=== PATIENT | male | born 1985 | race Two or more races ===

== ENCOUNTER 2019-04-23 22:21 | Emergency (ER) | payer OTHER ==
[~2019-04-23] VITALS: Ht 162.6 cm; Wt 77.1 kg
[2019-04-23 22:26] VITALS: Ht 162.6 cm; Wt 77.1 kg
[2019-04-23 22:47] VITALS: BP 136/83
== END 2019-04-23 22:47 | disposition other institution (70) ==
LOC: ED 22:21
DX: Z02.89 Encounter for other administrative examinations (principal)